=== PATIENT | male | born 1985 | race Two or more races ===

== ENCOUNTER 2019-10-06 00:25 | Emergency (ER) | payer OTHER ==
[~2019-10-06] VITALS: Ht 177.8 cm; Wt 119.7 kg
[2019-10-06] MEDS ORDERED: LOSARTAN POTAS100 MG (00:38)
[2019-10-06] MEDS ORDERED: LEVSIN/SL0.125 MG SL (04:58)
[2019-10-06] MEDS ORDERED: INTESTINEX680 M1 PO (04:58)
== END 2019-10-06 05:09 | disposition home or self-care (01) ==
LOC: ER 00:25 → EDSEX 00:30 → ER 05:09
DX: R19.7 Diarrhea, unspecified (principal)